=== PATIENT | female | born 1960 | race Caucasian/White ===

== ENCOUNTER 2021-05-06 19:43 | Emergency (ER) | payer MEDICARE ==
--- NOTE | 2021-05-06 20:00 | ERPHSYRPT ---
- History of Present Illness Time Seen by Provider: 05/06/21 19:46 Source: patient, EMS Exam Limitations: no limitations Physician History: The patient is a 60 y/o female with a pmh significant for HTN and breast cancer that is in remission and T2DM presents with a chief complaint of near syncope. Onset was just prior to arrival to the ED. 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 She felt lightheaded, flushed, and quickly sat down. Her symptoms resolved by the time she arrived to the ED via EMS. She denies CP, dyspnea, cough, N/V, blurred vision, focal weak ness/numbness/paresthesias. She endorsed having minor RUELAS. Her BP was noted to be in the 200's systolic. She states she takes HCTZ and verapamil for her HTN and has been compliant with these medications. She states she has not been compliant with her metformin because of GI side effects. She reports she checks her BP 3 times a week and her BP normally runs in the 140's 150's systolic. Timing/Duration: today Associated Symptoms: headaches, other (Near syncope), No nausea, No vomiting Allergies/Adverse Reactions: cephalexin monohydrate [From Keflex] Allergy (Mild, Verified 05/06/21 19:45) Hives iodine [Iodine] Allergy (Mild, Verified 05/06/21 19:45) Hives Sulfa (Sulfonamide Antibiotics) [Sulfa(Sulfonamide Antibiotics)] Adverse Reaction (Mild, Verified 05/06/21 19:45) Itching Home Medications: Hydrocodone Bit/Acetaminophen [[place] 5/325Mg] 1 each PO .PRN 02/15/15 [History] Metformin HCl 500 mg [Glucophage 500 MG] 500 mg PO TID 02/15/15 [History] Pravastatin Sodium 20 mg PO DAILY 02/15/15 [History] Verapamil HCl 40 mg PO DAILY 02/15/15 [History] Hx Tetanus, Diphtheria Vaccination/Date Given: Yes Hx Influenza Vaccination/Date Given: Yes (2013) Hx Pneumococcal Vaccination/Date Given: (unknown) - Review of Systems Constitutional: No Fever, No Chills Eyes: No Eye Pain, No Eye Redness, No Double Vision Ears, Nose, & Throat: No Symptoms Respiratory: No Symptoms Cardiac: No Symptoms Abdominal/Gastrointestinal: Abdominal Pain, No Nausea, No Vomiting Genitourinary Symptoms: No Symptoms Musculoskeletal: No Symptoms Skin: No Symptoms Neurological: Headache, Other (Near syncope), No Focal Weakness, No Parasthesia, No Seizure, No Speech Changes, No Vertigo Psychological: No Symptoms Endocrine: No Symptoms Hematologic/Lymphatic: No Symptoms All Other Systems: Reviewed and Negative - Past Medical History Pertinent Past Medical History: Yes Neurological History: No Pertinent History ENT History: No Pertinent History Cardiac History: High Cholesterol, Hypertension Respiratory History: No Pertinent History Endocrine Medical History: Diabetes Type II Musculoskeletal History: No Pertinent History GI Medical History: No Pertinent History History: No Pertinent History Psycho-Social History: Depression Female Reproductive Disorders: Breast Cancer Other Medical History: PMHX: MALIGNANT MELANOMA 1991 ANTERIOR CHEST TREATED WITH EXCISION AND RADIATION. BREAST CA 2010 TREATED WITH LUMPECTOMY, RADIATION AND CHEMO. STATES CARRIES "THE GENE" AND HAS BEEN RECOMMENDED TO HAVE BILATERAL MASTECTOMY BUT HAS DECLINED. RIGHT CARPAL TUNNEL (NO SURGERY). FX LEFT FOOT, CHOLECYSTECTOMY, HYSTERECTOMY - Past Surgical History Past Surgical History: Yes Neuro Surgical History: No Pertinent History Cardiac: No Pertinent History Respiratory: No Pertinent History Gastrointestinal: No Pertinent History Genitourinary: No Pertinent History Musculoskeletal: No Pertinent History Female Surgical History: Hysterectomy, Lumpectomy Other Surgical History: LUMPECTOMY LEFT BREAST - Social History Smoking Status: Never smoker Exposure to second hand smoke: No Drug Use: none Patient Lives Alone: Yes - Nursing Vital Signs Nursing Vital Signs: Initial Vital Signs Temperature 98.6 F 05/06/21 19:43 Pulse Rate 68 05/06/21 19:43 Respiratory Rate 16 05/06/21 19:43 Blood Pressure 203/104 05/06/21 19:43 O2 Sat by Pulse Oximetry 99 05/06/21 19:43 Pain Scale Pain Intensity 4 - Physical Exam General Appearance: no apparent distress, alert Eye Exam: PERRL/EOMI, eyes nml inspection, No scleral icterus Ears, Nose, Throat Exam: pharynx normal, No pharyngeal erythema, No tonsillar exudate Neck Exam: normal inspection, non-tender, supple Respiratory Exam: normal breath sounds, lungs clear, airway intact, No chest tenderness, No respiratory distress Cardiovascular Exam: regular rate/rhythm, normal heart sounds, normal peripheral pulses (Radial pulse 2+ bilaterally, DP 2+ bilaterally), No murmur, No friction rub, No capillary refill <2 sec, No edema Gastrointestinal/Abdomen Exam: soft, other (No pulsating mass and no abdominal bruit ascultated), No tenderness, No distention, No mass, No guarding Pelvic Exam: not done Rectal Exam: deferred Back Exam: normal inspection Extremity Exam: normal inspection, other (Digital Experience Manager strength 5/5, bicep flexion 5/5, hip flexion 5/5, dorsiflexion and plantar flexion 5/5 bilaterally) Neurologic Exam: alert, oriented x 3, cooperative, No normal mood/affect Skin Exam: normal color, warm, dry, No rash, No petechiae, No cyanosis SpO2 Interpretation: normal O2 Delivery: Room Air - Course Nursing assessment & vital signs reviewed: Yes EKG Interpreted by Me: RATE, Sinus Rhythm, NORMAL AXIS, NORMAL INTERVALS, NORMAL QRS, Other (No evidence of pre-excitation, no evidence of acute myocardial ischemia or injury pattern.) - Radiology Exams Chest X-ray Interpretation: Interpreted by me, Reviewed by me, Other (No acute cardiopulmonary process. Awaiting formal radiology review) - CT Exams Head CT Interpretation: Negative, Tele-radiologist Report Ordered Tests: Active Orders 24 hr Category Date Time Status EKG-ER Only STAT Care 05/06/21 19:55 Active IV Insertion STAT Care 05/06/21 19:55 Active CHEST 2 VIEWS (PA AND LAT) Stat Exams 05/06/21 19:56 Taken HEAD WITHOUT CONTRAST [CT] Stat Exams 05/06/21 19:57 Taken BMP Stat Lab 05/06/21 20:30 Completed CBC W DIFF Stat Lab 05/06/21 20:30 Completed TROPONIN Stat Lab 05/06/21 20:30 Completed UA W/RFX UR CULTURE Stat Lab 05/06/21 19:56 Completed Medication Summary Generic Name Dose Route Start Last Admin Trade Name Freq PRN Reason Stop Dose Admin Magnesium Sulfate/Dextrose 100 mls @ 100 mls/hr 05/06/21 21:15 05/06/21 21:19 Magnesium 1 Gm / 100 Ml D5w IV 05/06/21 23:14 100 mls/hr Q1H [place] Administration Discontinued Medications Generic Name Dose Route Start Last Admin Trade Name Freq PRN Reason Stop Dose Admin Acetaminophen 975 mg 05/06/21 20:50 05/06/21 20:56 Acetaminophen 325 Mg Tablet PO 05/06/21 20:51 975 mg STAT ONE Administration Acetaminophen Confirm 05/06/21 20:55 Acetaminophen 325 Mg Tablet Administered 05/06/21 20:56 Dose 975 mg .ROUTE .STK-MED ONE Famotidine 20 mg 05/06/21 20:50 05/06/21 20:56 Famotidine 20 Mg/1 Vial IV 05/06/21 20:51 20 mg STAT ONE Administration Famotidine Confirm 05/06/21 20:53 Famotidine 20 Mg/1 Vial Administered 05/06/21 20:54 Dose 20 mg IV .STK-MED ONE Sodium Chloride 1,000 mls @ 999 mls/hr 05/06/21 21:05 05/06/21 21:18 Sodium Chloride 0.9% 1000 Ml IV 05/06/21 22:05 999 mls/hr .Q1H1M STA Administration Sodium Chloride Confirm 05/06/21 21:11 Sodium Chloride 0.9% 1000 Ml Administered 05/06/21 21:12 Dose 1,000 mls @ ud .ROUTE .STK-MED ONE Potassium Chloride 40 meq 05/06/21 21:06 05/06/21 21:18 Potassium Chloride 10 Meq Tablet PO 05/06/21 21:07 40 meq STAT ONE Administration Potassium Chloride Confirm 05/06/21 21:11 Potassium Chloride 10 Meq Tablet Administered 05/06/21 21:12 Dose 40 meq PO .STK-MED ONE Lab/Rad Data: Laboratory Result Diagrams 05/06/21 20:30 05/06/21 20:30 Laboratory Results 05/06/21 05/06/21 05/06/21 Range/Units 20:30 20:30 19:56 WBC 8.0 (4.0-10.5) K/mm3 RBC 4.60 (4.1-5.4) M/mm3 Hgb 12.7 (12.0-16.0) gm/dl Hct 38.1 (35-47) % MCV 82.8 (78-100) fl MCH 27.6 (26-32) pg MCHC 33.3 (32-36) g/dl RDW 13.2 (11.5-14.0) % Plt Count 258 (150-450) K/mm3 MPV 10.5 (7.5-11.0) fl Gran % 64.0 (36.0-66.0) % Eos # (Auto) 0.13 (0-0.5) Absolute Lymphs (auto) 2.18 (1.0-4.6) Absolute Monos (auto) 0.52 (0.0-1.3) Lymphocytes % 27.3 (24.0-44.0) % Monocytes % 6.5 (0.0-12.0) % Eosinophils % 1.6 (0.00-5.0) % Basophils % 0.6 (0.0-0.4) % Absolute Granulocytes 5.10 (1.4-6.9) Basophils # 0.05 (0-0.4) Sodium 133 L (137-145) mmol/L Potassium 2.9 L* (3.5-5.1) mmol/L Chloride 96 L (98-107) mmol/L Carbon Dioxide 25 (22-30) mmol/L Anion Gap 14.9 (5-15) MEQ/L BUN 5 L (7-17) mg/dL Creatinine 0.59 (0.52-1.04) mg/dL Estimated GFR > 60.0 ML/MIN Glucose 153 H (74-106) mg/dL Calcium 9.6 (8.4-10.2) mg/dL Troponin I < 0.012 (0.000-0.034) ng/mL Urine Color COLORLESS (YELLOW) Urine Appearance CLEAR (CLEAR) Urine pH 7.0 (5-6) Ur Specific [place] 1.003 (1.005-1.025) Urine Protein NEGATIVE (Negative) Urine Ketones TRACE (NEGATIVE) Urine Blood NEGATIVE (0-5) Abe/ul Urine Nitrite NEGATIVE (NEGATIVE) Urine Bilirubin NEGATIVE (NEGATIVE) Urine Urobilinogen NEGATIVE (0-1) mg/dL Ur Leukocyte Esterase SMALL (NEGATIVE) Urine WBC (Auto) 3-5 (0-5) /HPF Urine RBC (Auto) 0-2 (0-2) /HPF U Epithel Cells (Auto) RARE (FEW) /HPF Urine Bacteria (Auto) NONE (NEGATIVE) /HPF Urine Mucus (Auto) SLIGHT (NEGATIVE) /HPF Urine Culture Reflexed NO (NO) Urine Glucose NEGATIVE (NEGATIVE) mg/dL - Progress Progress Note: 05/06/21 20:50 I performed a bedside US of the patient abdominal aorta and there was no evidence of AAA or dissection. 05/06/21 20:54 Blood pressure lowering without intervention. BP 176/74 mmHg. 05/06/21 21:07 The patient serum sodium is mildly low, with hypokalemia, and hypochloremia. May be from dehydration, or from diarrhea from her metformin. She likely is low on magnesium given she is hypokalemic. Plan to administer IV magnesium which should help lower her BP, IVF, and PO KCl. 05/06/21 22:25 Nontoxic appearance. No evidence of endorgan failure. Patient likely had vasovagal near syncope given her history. My suspicion for arrhythmia is low. Head CT showed no evidence of intracranial hemorrhage or stroke and bedside ultrasound of her aorta showed no evidence of AAA. Her potassium and magnesium was repleted. Her blood pressure started trending down on its own without any intervention, specifically antihypertensives and the magnesium may help with this as well. I will have the patient's medications switched from HCTZ to a HCTZ lisinopril combination and have increased her oral potassium. I instructed her to follow-up with her PCP to have her blood pressure rechecked and further managed as an outpatient. She agreed with and verbally understood the discharge plan and was comfortable with being discharged home. - Departure Departure Disposition: Home Clinical Impression: Vasovagal near syncope, Hypokalemia, Hyponatremia, Accelerated hypertension Condition: Stable Critical Care Time: No Referrals: JAY OBRIEN MD [Primary Care Provider] - Follow up/PCP as directed Instructions: High Blood Pressure in Adults, Hypokalemia (DC), Near Fainting (DC) Prescriptions: Potassium Chloride 10 Meq Tab* [Klor [place] 10 MEQ] 20 meq PO DAILY #30 tab Lisinopril/Hydrochlorothiazide [Lisinopril-Hctz 10-12.5 mg Tab] 1 each PO DAILY #30 tablet
[2021-05-06 20:33] LABS: BASOPHIL % 0.6 % (0.0-0.4); Basophil (Absolute #) 0.05 (0-0.4); Eosinophil % 1.6 % (0.00-5.0); Eosinophil (Absolute #) 0.13 (0-0.5); Hematocrit 38.1 % (35-47); Hemoglobin 12.7 gm/dl (12.0-16.0); Lymphocyte (Absolute #) 2.18 (1.0-4.6); Lymphocytes % 27.3 % (24.0-44.0); Mean Cell Volume 82.8 fl (78-100); Mean Corpuscular Hemoglobin 27.6 pg (26-32); Mean Corpuscular Hgb Concent. 33.3 g/dl (32-36); Mean Platelet Volume 10.5 fl (7.5-11.0); Monocyte (Absolute #) 0.52 (0.0-1.3); Monocytes % 6.5 % (0.0-12.0); Platelet Count 258 K/mm3 (150-450); Red Cell Distribution Width 13.2 % (11.5-14.0)
[2021-05-06] MEDS ORDERED: TYLENOL 325 MG PO ONE (20:50)
[2021-05-06] MEDS ORDERED: Pepcid 20 MG VIAL IV ONE ×2 (20:50→20:53)
[2021-05-06 20:55] LABS: ANION GAP 14.9 MEQ/L (5-15); BLOOD UREA NITROGEN 5 mg/dL (7-17); CHLORIDE 96 mmol/L (98-107); Calcium 9.6 mg/dL (8.4-10.2); Carbon Dioxide 25 mmol/L (22-30); Creatinine 1 0.59 mg/dL (0.52-1.04); EST GLOMERULAR FILTRATION RATE > 60.0 ML/MIN; Glucose 153 mg/dL (74-106); SODIUM 133 mmol/L (137-145); TROPONIN < 0.012 ng/mL (0.000-0.034)
[2021-05-06] MEDS ORDERED: TYLENOL 325 MG ONE (20:55)
[2021-05-06 20:57] LABS: Appearance CLEAR (CLEAR); Bilirubin NEGATIVE (NEGATIVE); Blood NEGATIVE Ery/ul (0-5); Epithelial Cells RARE /HPF (FEW); Glucose NEGATIVE (NEGATIVE); Ketones TRACE (NEGATIVE); Leukocyte Esterase SMALL (NEGATIVE); Mucus SLIGHT /HPF (NEGATIVE); Nitrite NEGATIVE (NEGATIVE); Protein,Urine Dip NEGATIVE (Negative); RBC 0-2 /HPF (0-2); Specific Gravity 1.003 (1.005-1.025); Urobilinogen NEGATIVE mg/dL (0-1)
[2021-05-06 21:01] LABS: Potassium 2.9 mmol/L (3.5-5.1)
[2021-05-06] MEDS ORDERED: Sodium Chloride 0.9% 1000 ML 1,000 ML IV STA (21:05)
[2021-05-06] MEDS ORDERED: Klor Con 10 MEQ PO ONE ×2 (21:06→21:11)
[2021-05-06] MEDS ORDERED: Sodium Chloride 0.9% 1000 ML 1,000 ML ONE (21:11)
[2021-05-06] MEDS ORDERED: Magnesium 1 Gm / 100 Ml D5W*** 200 ML IV ONE (21:11)
[2021-05-06] MEDS: Magnesium 1 Gm / 100 Ml D5W*** 100 ML IV SCH (21:19)
--- NOTE | 2021-05-07 07:45 | XRAY ---
Indication: Headache. Hypertension. Multiple contiguous axial images obtained through the head without contrast. Comparison: None Normal appearing brain parenchyma, ventricles, and bony calvarium for patient's age. Visualized paranasal sinuses and mastoid air cells are clear. Impression: Normal CT head without contrast exam. Comment: Preliminary interpretation made by [facility]. No critical discrepancy.
--- NOTE | 2021-05-07 07:49 | XRAY ---
Indication: Near syncope. Hypertension. Comparison: December 29, 2015. PA/lateral chest again demonstrates normal heart and lungs with stable metallic clip overlying right lung. Bony thorax intact again with minimal degenerative changes. No new/acute findings.
[2021-05-08 17:06] VITALS: BP 175/79; PULSE 65; O2SAT 95
== END 2021-05-06 22:40 | disposition home or self-care (01) ==
LOC: ED 19:43
DX: R55 Syncope and collapse (principal); E87.6 Hypokalemia; E87.1 Hypo-osmolality and hyponatremia; I10 Essential (primary) hypertension; E11.8 Type 2 diabetes mellitus with unspecified complications; Z79.84 Long term (current) use of oral hypoglycemic drugs; R51.9 Headache, unspecified; Z79.891 Long term (current) use of opiate analgesic; E78.5 Hyperlipidemia, unspecified
CPT/HCPCS: 36000; 36415; 70450; 71046; 80048; 81001; 84484; 85025; 93005; 96374; 99284; J3475; A9270-GY

== ENCOUNTER 2021-05-20 17:02 | Emergency (ER) | payer MEDICARE ==
[2021-05-20] MEDS ORDERED: TYLENOL 325 MG PO STA (17:14)
--- NOTE | 2021-05-20 17:22 | ERPHSYRPT ---
- History of Present Illness Time Seen by Provider: 05/20/21 17:03 Source: patient Exam Limitations: no limitations Patient Subjective Stated Complaint: PT states "I have these odd sores in my mouth and my tongue hurts." Triage Nursing Assessment: Pt presented alert and oriented x 3, skin wpd Pt ambulates with an upright steady gait, able to speak in clear full sentences pt in no apparent respiratory distress. Physician History: 60-year-old female presented in the ER with chief complaint of sore throat/bumps on the back of throat and some soreness in the tongue with altered taste with decreased appetite. Mild painful swallowing but denies any difficulty breathing. No fever or chills reported. Timing/Duration: gradual onset, days (2) Severity: moderate ENT Location: throat Prearrival Treatment: over the counter meds Associated Symptoms: nasal congestion/drainage, sore throat Allergies/Adverse Reactions: cephalexin monohydrate [From Keflex] Allergy (Mild, Verified 05/06/21 19:45) Hives iodine [Iodine] Allergy (Mild, Verified 05/06/21 19:45) Hives Sulfa (Sulfonamide Antibiotics) [Sulfa(Sulfonamide Antibiotics)] Adverse Reaction (Mild, Verified 05/06/21 19:45) Itching Home Medications: Hydrocodone Bit/Acetaminophen [[place] 5/325Mg] 1 each PO .PRN 02/15/15 [History] Metformin HCl 500 mg [Glucophage 500 MG] 500 mg PO TID 02/15/15 [History] Pravastatin Sodium 20 mg PO DAILY 02/15/15 [History] Verapamil HCl 40 mg PO DAILY 02/15/15 [History] Hx Tetanus, Diphtheria Vaccination/Date Given: Yes Hx Influenza Vaccination/Date Given: Yes (2013) Hx Pneumococcal Vaccination/Date Given: (unknown) Immunizations Up to Date: Yes Travel Risk - International Travel Have you traveled outside of the country in past 3 weeks: No - Coronavirus Screening Are you exhibiting any of the following symptoms?: No Close contact with a COVID-19 positive Pt in past 14-21 Days: No - Vaccine Status Have you recieved a Covid-19 vaccination: Yes Estimator Printing: Moderna - Vaccination Dates Date of 2cond Vaccination (if applicable): 10/08/2020 - Review of Systems Constitutional: No Symptoms Eyes: No Symptoms Ears, Nose, & Throat: Mouth Swelling, Throat Pain, Throat Swelling, Painful Swallowing Respiratory: No Symptoms Cardiac: No Symptoms Abdominal/Gastrointestinal: No Symptoms Genitourinary Symptoms: No Symptoms Musculoskeletal: No Symptoms Neurological: No Symptoms Psychological: No Symptoms Endocrine: No Symptoms Hematologic/Lymphatic: No Symptoms Immunological/Allergic: No Symptoms - Past Medical History Pertinent Past Medical History: Yes Neurological History: No Pertinent History ENT History: No Pertinent History Cardiac History: High Cholesterol, Hypertension Respiratory History: No Pertinent History Endocrine Medical History: Diabetes Type II Musculoskeletal History: No Pertinent History GI Medical History: No Pertinent History History: No Pertinent History Psycho-Social History: Depression Female Reproductive Disorders: Breast Cancer Other Medical History: PMHX: MALIGNANT MELANOMA 1991 ANTERIOR CHEST TREATED WITH EXCISION AND RADIATION. BREAST CA 2010 TREATED WITH LUMPECTOMY, RADIATION AND CHEMO. STATES CARRIES "THE GENE" AND HAS BEEN RECOMMENDED TO HAVE BILATERAL MASTECTOMY BUT HAS DECLINED. RIGHT CARPAL TUNNEL (NO SURGERY). FX LEFT FOOT, CHOLECYSTECTOMY, HYSTERECTOMY - Past Surgical History Past Surgical History: Yes Neuro Surgical History: No Pertinent History Cardiac: No Pertinent History Respiratory: No Pertinent History Gastrointestinal: No Pertinent History Genitourinary: No Pertinent History Musculoskeletal: No Pertinent History Female Surgical History: Hysterectomy, Lumpectomy Other Surgical History: LUMPECTOMY LEFT BREAST - Social History Smoking Status: Never smoker Exposure to second hand smoke: No Drug Use: none Patient Lives Alone: No - Nursing Vital Signs Nursing Vital Signs: Initial Vital Signs Temperature 98.3 F 05/20/21 17:06 Pulse Rate 81 05/20/21 17:06 Respiratory Rate 20 05/20/21 17:06 Blood Pressure 190/87 05/20/21 17:06 O2 Sat by Pulse Oximetry 99 05/20/21 17:06 Pain Scale Pain Intensity 7 - Physical Exam General Appearance: no apparent distress, alert Eye Exam: bilateral eye: normal inspection, PERRL, EOMI Ear Exam: bilateral ear: auricle normal, canal normal, TM normal Throat Exam: normal, moist mucus membranes, pharynx swelling, pharynx tenderness, No tonsillar exudate Neck Exam: normal inspection, non-tender, supple, full range of motion, trachea midline Cardiovascular/Respiratory Exam: normal breath sounds, regular rate/rhythm, heart sounds normal Abdominal Exam: non-tender, soft Neurologic Exam: alert, oriented x 3, cooperative, insulation technician II-XII nml as tested Skin Exam: normal color SpO2 Interpretation: normal SpO2: 99 O2 Delivery: Room Air Ordered Tests: Active Orders 24 hr Category Date Time Status INFLUENZA A+B DA Stat Lab 05/20/21 17:35 Completed Medication Summary Discontinued Medications Generic Name Dose Route Start Last Admin Trade Name Wendy PRN Reason Stop Dose Admin Acetaminophen 975 mg 05/20/21 17:14 05/20/21 17:52 Acetaminophen 325 Mg Tablet PO 05/20/21 17:15 975 mg STAT STA Administration Acetaminophen Confirm 05/20/21 17:51 Acetaminophen 325 Mg Tablet Administered 05/20/21 17:52 Dose 975 mg .ROUTE .[employer] ONE Lab/Rad Data: Laboratory Results 05/20/21 05/20/21 Range/Units 17:35 17:35 Influenza Type A Ag NEGATIVE (NEGATIVE) Influenza Type B Ag NEGATIVE (NEGATIVE) Group A Strep Antibody NOT DETECTED (NEGATIVE) - Progress Progress: improved, re-examined Progress Note: 05/20/21 18:28 She is given some Tylenol for symptomatic relief. Negative strep and flu. Patient is vaccinated against COVID-19. Will obtain outpatient Covid test. Probably viral pharyngitis, recommended supportive care. Discussed signs symptoms of worsening needing return to ER which she seems understanding. Counseled pt/family regarding: lab results, diagnosis, need for follow-up - Departure Departure Disposition: Home Clinical Impression: Acute viral pharyngitis Condition: Stable Critical Care Time: No Referrals: JAY OBRIEN MD [Primary Care Provider] - Follow up/PCP as directed (In 2 days for reevaluation) Instructions: Sore Throat, Adult (DC) Additional Instructions: Take Tylenol as needed for pain. Drink plenty of fluids. Use warm salt water gargles. Follow contact/droplet precautions until your Covid test is back. Return to ER for worsening sore throat, difficulty swallowing or if develop any difficulty breathing etc.
[2021-05-20] MEDS ORDERED: TYLENOL 325 MG ONE (17:51)
[2021-05-20 18:03] LABS: INFLUENZA A NEGATIVE (NEGATIVE); INFLUENZA B NEGATIVE (NEGATIVE)
[2021-05-20 18:30] VITALS: BP 188/91; PULSE 70; O2SAT 99
== END 2021-05-20 18:51 | disposition home or self-care (01) ==
LOC: ED 17:02
DX: J02.9 Acute pharyngitis, unspecified (principal); I10 Essential (primary) hypertension; E78.5 Hyperlipidemia, unspecified; E11.8 Type 2 diabetes mellitus with unspecified complications; Z79.84 Long term (current) use of oral hypoglycemic drugs; Z79.891 Long term (current) use of opiate analgesic
CPT/HCPCS: 87400; 87651; 99283; U0003; A9270-GY

== ENCOUNTER 2021-11-14 19:53 | Emergency (ER) | payer MEDICARE ==
--- NOTE | 2021-11-14 20:05 | ERPHSYRPT ---
- History of Present Illness Time Seen by Provider: 11/14/21 20:05 Source: patient Exam Limitations: no limitations Physician History: This is a 61-year-old white female who has a history of hypertension, elevated cholesterol and type 2 diabetes who presents with rash that began on her back today. However, yesterday she felt a burning painful sensation in the same area before the rash erupted. Today there is the rash and more acute, significant burning pain present. Patient has had history of shingles in the past and this is how it began for her at that time. Patient has [place] at home and will use that for pain control. However, she wanted to start on an antiviral as quickly as possible. Quality: burning, painful Severity: mild (To moderate) Location: other (Back) Possible Causes: other (Likely shingles) Associated Symptoms: rash Allergies/Adverse Reactions: amoxicillin Allergy (Mild, Verified 11/14/21 21:12) Hives iodine [Iodine] Allergy (Mild, Verified 11/14/21 21:12) Hives Sulfa (Sulfonamide Antibiotics) [Sulfa(Sulfonamide Antibiotics)] Adverse Reaction (Mild, Verified 11/14/21 21:12) Itching Home Medications: Hydrocodone Bit/Acetaminophen [[place] 5/325Mg] 1 each PO .PRN 02/15/15 [History] Metformin HCl 500 mg [Glucophage 500 MG] 500 mg PO TID 02/15/15 [History] Pravastatin Sodium 20 mg PO DAILY 02/15/15 [History] Verapamil HCl 40 mg PO DAILY 02/15/15 [History] Hx Tetanus, Diphtheria Vaccination/Date Given: Yes Hx Influenza Vaccination/Date Given: Yes (2013) Hx Pneumococcal Vaccination/Date Given: (unknown) Travel Risk - International Travel Have you traveled outside of the country in past 3 weeks: No - Coronavirus Screening Are you exhibiting any of the following symptoms?: No Close contact with a COVID-19 positive Pt in past 14-21 Days: No - Vaccine Status Have you recieved a Covid-19 vaccination: Yes Claim Analyst: Moderna - Vaccination Dates Date of 2cond Vaccination (if applicable): 10/08/2020 - Review of Systems Constitutional: No Symptoms Eyes: No Symptoms Ears, Nose, & Throat: No Symptoms Respiratory: No Symptoms Cardiac: No Symptoms Abdominal/Gastrointestinal: No Symptoms Genitourinary Symptoms: No Symptoms Musculoskeletal: No Symptoms Skin: Rash Neurological: No Symptoms Psychological: No Symptoms Endocrine: No Symptoms Hematologic/Lymphatic: No Symptoms Immunological/Allergic: No Symptoms All Other Systems: Reviewed and Negative - Past Medical History Pertinent Past Medical History: Yes Neurological History: No Pertinent History ENT History: No Pertinent History Cardiac History: High Cholesterol, Hypertension Respiratory History: No Pertinent History Endocrine Medical History: Diabetes Type II Musculoskeletal History: No Pertinent History GI Medical History: No Pertinent History History: No Pertinent History Psycho-Social History: Depression Female Reproductive Disorders: Breast Cancer Other Medical History: PMHX: MALIGNANT MELANOMA 1991 ANTERIOR CHEST TREATED WITH EXCISION AND RADIATION. BREAST CA 2010 TREATED WITH LUMPECTOMY, RADIATION AND CHEMO. STATES CARRIES "THE GENE" AND HAS BEEN RECOMMENDED TO HAVE BILATERAL MASTECTOMY BUT HAS DECLINED. RIGHT CARPAL TUNNEL (NO SURGERY). FX LEFT FOOT, CHOLECYSTECTOMY, HYSTERECTOMY - Past Surgical History Past Surgical History: Yes Neuro Surgical History: No Pertinent History Cardiac: No Pertinent History Respiratory: No Pertinent History Gastrointestinal: No Pertinent History Genitourinary: No Pertinent History Musculoskeletal: No Pertinent History Female Surgical History: Hysterectomy, Lumpectomy Other Surgical History: LUMPECTOMY LEFT BREAST - Social History Smoking Status: Never smoker Exposure to second hand smoke: No Drug Use: none Patient Lives Alone: No - Nursing Vital Signs Nursing Vital Signs: Initial Vital Signs Temperature 97.1 F 11/14/21 20:58 Pulse Rate 77 11/14/21 20:58 Respiratory Rate 16 11/14/21 20:58 Blood Pressure 157/87 11/14/21 20:58 O2 Sat by Pulse Oximetry 97 11/14/21 20:58 Pain Scale Pain Intensity 7 - Physical Exam General Appearance: no apparent distress, alert, anxiety Eye Exam: PERRL/EOMI, eyes nml inspection Ears, Nose, Throat Exam: normal ENT inspection, moist mucous membranes Neck Exam: normal inspection, non-tender, supple, full range of motion Respiratory Exam: normal breath sounds, lungs clear, airway intact, No chest tenderness, No respiratory distress Cardiovascular Exam: regular rate/rhythm, normal heart sounds, normal peripheral pulses Gastrointestinal/Abdomen Exam: soft, normal bowel sounds, No tenderness Pelvic Exam: not done Rectal Exam: not done Extremity Exam: normal inspection, normal range of motion, pelvis stable Neurologic Exam: alert, oriented x 3, cooperative, restaurant management internship II-XII nml as tested, normal mood/affect, nml cerebellar function, nml station & gait, sensation nml Skin Exam: rash (Dermatome starting the back migrating to the left. No blisters at this time) Lymphatic Exam: No adenopathy SpO2 Interpretation: normal O2 Delivery: Room Air - Progress Progress: unchanged Counseled pt/family regarding: diagnosis, need for follow-up - Departure Departure Disposition: Home Clinical Impression: Shingles rash Condition: Stable Critical Care Time: No Referrals: JAY OBRIEN MD [Primary Care Provider] - Follow up/PCP as directed Additional Instructions: Keep area clean. Use your hydrocodone pain medicine for pain relief. Follow-up with your primary care physician for further evaluation and management. Take your antiviral medication as prescribed. Prescriptions: Valacyclovir HCl [Valacyclovir] 1,000 mg PO Q8H #21 tablet
[2021-11-14 21:10] VITALS: BP 157/87
[2021-11-14] MEDS ORDERED: ACYCLOVIR PO ONE (21:25)
[2021-11-14] MEDS ORDERED: ACYCLOVIR ONE (21:36)
[2021-11-14 21:45] VITALS: PULSE 90; O2SAT 99
== END 2021-11-14 21:46 | disposition home or self-care (01) ==
LOC: ED 19:53
DX: B02.8 Zoster with other complications (principal); R21 Rash and other nonspecific skin eruption; I10 Essential (primary) hypertension; E78.5 Hyperlipidemia, unspecified; E11.9 Type 2 diabetes mellitus without complications; Z79.891 Long term (current) use of opiate analgesic; Z79.84 Long term (current) use of oral hypoglycemic drugs; Z79.899 Other long term (current) drug therapy
CPT/HCPCS: 99283; A9270-GY

== ENCOUNTER 2021-11-30 16:45 | Emergency (ER) | payer MEDICARE ==
--- NOTE | 2021-11-30 17:32 | ERPHSYRPT ---
- History of Present Illness Source: patient Exam Limitations: no limitations Patient Subjective Stated Complaint: pain in the pelvic area and some pain when she urinates, pt did have some kind of urinary or kidney infection a few weeks ago and she went to [facility] and thinks that she didn't get all the way over it Triage Nursing Assessment: Pt brought self to the ER, hypertensive, rates pain as 7/10, took an AZO Standard today trying to aleviate the pain, pain to lower pelvic region, skin n/w/d, pulses normal, denies N&V, doesn't appear to be in any distress Physician History: 61 yo wf w dysuria and mild supra-pubic pain today. Pt was treated for a UTI 2 wks ago. She denies increased frequency/hematuria/CVA pain//fever/N/V/D. Timing/Duration: today Activites at Onset: rest Quality: burning Onset Location: suprapubic Pain Radiation: none Severity of Pain-Max: mild Severity of Pain-Current: mild Prior abdominal problems: none Sexual intercourse history: non-contributory Modifying Factors: Improves With: nothing, urinating Associated Symptoms: No abdominal pain, No fever, No chills, No diaphoresis, No nausea, No vomiting, No dysuria, No nocturia, No polyuria, No urinary frequency, No , No loss of bladder control, No lower back pain, No lumps, No mass, No swelling, No syncope, No vaginal discharge, No vaginal fluid leakage Allergies/Adverse Reactions: amoxicillin Allergy (Mild, Verified 11/30/21 17:12) Hives iodine [Iodine] Allergy (Mild, Verified 11/30/21 17:12) Hives Sulfa (Sulfonamide Antibiotics) [Sulfa(Sulfonamide Antibiotics)] Adverse Reaction (Mild, Verified 11/30/21 17:12) Itching Home Medications: Hydrocodone Bit/Acetaminophen [[place] 5/325Mg] 1 each PO .PRN 02/15/15 [History] Metformin HCl 500 mg [Glucophage 500 MG] 500 mg PO TID 02/15/15 [History] Pravastatin Sodium 20 mg PO DAILY 02/15/15 [History] Verapamil HCl 40 mg PO DAILY 02/15/15 [History] Hx Tetanus, Diphtheria Vaccination/Date Given: Yes Hx Influenza Vaccination/Date Given: Yes (2013) Hx Pneumococcal Vaccination/Date Given: (unknown) Travel Risk - International Travel Have you traveled outside of the country in past 3 weeks: No - Coronavirus Screening Are you exhibiting any of the following symptoms?: No - Vaccine Status Have you recieved a Covid-19 vaccination: Yes Edging Machine Catcher: Moderna - Vaccination Dates Date of 2cond Vaccination (if applicable): 10/08/2020 - Review of Systems Constitutional: No Symptoms Eyes: No Symptoms Ears, Nose, & Throat: No Symptoms Respiratory: No Symptoms Cardiac: No Symptoms Abdominal/Gastrointestinal: Other (Supra-pubic pain) Genitourinary Symptoms: No Symptoms, Dysuria Musculoskeletal: No Symptoms Skin: No Symptoms Neurological: No Symptoms Psychological: No Symptoms Endocrine: No Symptoms Hematologic/Lymphatic: No Symptoms Immunological/Allergic: No Symptoms - Past Medical History Pertinent Past Medical History: Yes Neurological History: No Pertinent History ENT History: No Pertinent History Cardiac History: High Cholesterol, Hypertension Respiratory History: No Pertinent History Endocrine Medical History: Diabetes Type II Musculoskeletal History: No Pertinent History GI Medical History: No Pertinent History History: No Pertinent History Psycho-Social History: Depression Female Reproductive Disorders: Breast Cancer Other Medical History: PMHX: MALIGNANT MELANOMA 1991 ANTERIOR CHEST TREATED WITH EXCISION AND RADIATION. BREAST CA 2010 TREATED WITH LUMPECTOMY, RADIATION AND CHEMO. STATES CARRIES "THE GENE" AND HAS BEEN RECOMMENDED TO HAVE BILATERAL MASTECTOMY BUT HAS DECLINED. RIGHT CARPAL TUNNEL (NO SURGERY). FX LEFT FOOT, CHOLECYSTECTOMY, HYSTERECTOMY - Past Surgical History Past Surgical History: Yes Neuro Surgical History: No Pertinent History Cardiac: No Pertinent History Respiratory: No Pertinent History Gastrointestinal: No Pertinent History Genitourinary: No Pertinent History Musculoskeletal: No Pertinent History Female Surgical History: Hysterectomy, Lumpectomy Other Surgical History: LUMPECTOMY LEFT BREAST - Social History Smoking Status: Never smoker Exposure to second hand smoke: No Drug Use: none Patient Lives Alone: No - Nursing Vital Signs Nursing Vital Signs: Initial Vital Signs Temperature 98.5 F 11/30/21 16:56 Pulse Rate 79 11/30/21 16:56 Blood Pressure 145/82 11/30/21 16:56 O2 Sat by Pulse Oximetry 96 11/30/21 16:56 Pain Scale Pain Intensity 7 Hypertensive - Physical Exam General Appearance: no apparent distress Eye Exam: PERRL/EOMI, eyes nml inspection Ears, Nose, Throat Exam: normal ENT inspection, TMs normal, pharynx normal, moist mucous membranes Neck Exam: normal inspection, non-tender, supple, full range of motion, No meningismus, No mass, No Brudzinski, No Kernig's, No carotid bruit Respiratory Exam: normal breath sounds, lungs clear, airway intact Cardiovascular Exam: regular rate/rhythm, normal heart sounds, normal peripheral pulses, capillary refill <2 sec, No murmur Gastrointestinal/Abdomen Exam: soft, normal bowel sounds, No tenderness, No distention Pelvic Exam: not done Back Exam: normal inspection, normal range of motion, No CVA tenderness Extremity Exam: normal inspection, normal range of motion Neurologic Exam: alert, oriented x 3, cooperative, microsoft systems engineer II-XII nml as tested, normal mood/affect, nml cerebellar function, nml station & gait, sensation nml Skin Exam: normal color, warm, dry Lymphatic Exam: No adenopathy SpO2 Interpretation: normal SpO2: 96 O2 Delivery: Room Air - Course Nursing assessment & vital signs reviewed: Yes Ordered Tests: Active Orders 24 hr Category Date Time Status CULTURE,URINE Stat Lab 11/30/21 17:45 Received UA W/RFX CULTURE Stat Lab 11/30/21 17:45 Completed Lab/Rad Data: Laboratory Results 11/30/21 Range/Units 17:45 Urinalys Dipstick Clnc MAIN LAB Urine Color ORANGE (YELLOW) Urine Appearance CLEAR (CLEAR) Urine pH 5.0 (5-6) Ur Specific [place] <=1.005 (1.005-1.025) POC Urine Protein Conf NEGATIVE (Negative) Urine Ketones NEGATIVE (NEGATIVE) Urine Nitrite POSITIVE (NEGATIVE) Urine Bilirubin NEGATIVE (NEGATIVE) Urine Urobilinogen 1 (0-1) mg/dL Urine Leukocytes SMALL (NEGATIVE) Urine WBC (Auto) 0-2 (0-5) /HPF Urine RBC (Auto) 0-2 (0-2) /HPF U Epithel Cells (Auto) NONE (FEW) /HPF Urine Bacteria (Auto) NONE (NEGATIVE) /HPF Urine RBC NEGATIVE (0-5) Abe/ul Urine Mucus (Auto) SLIGHT (NEGATIVE) /HPF Ur Culture Indicated? YES Urine Glucose 100 (NEGATIVE) mg/dL - Progress Progress Note: 11/30/21 21:51 Urine fairly unremarkable, but pt on pyridium and symptomatic, so will treat. Last UA grew out E coli susceptible to Levaquin, so short course of Levaquin started. Counseled pt/family regarding: lab results, diagnosis, need for follow-up - Departure Departure Disposition: Home Clinical Impression: Dysuria Condition: Stable Critical Care Time: No Referrals: JAY OBRIEN MD [Primary Care Provider] - Follow up/PCP as directed Instructions: Urinary Tract Infection, Adult (DC), Dysuria, Adult (DC) Additional Instructions: Levaquin once a day for 3 days Follow up with your family MD Return to ER for worsening symptoms Prescriptions: levoFLOXacin [Levofloxacin] 500 mg PO DAILY #3 tablet
[2021-11-30 18:15] LABS: Appearance CLEAR (CLEAR)
[2021-11-30 18:16] LABS: Bilirubin NEGATIVE (NEGATIVE); Glucose 100 mg/dL (NEGATIVE); Ketones NEGATIVE (NEGATIVE); Nitrite POSITIVE (NEGATIVE); Protein,Urine Dip NEGATIVE (Negative); RBC NEGATIVE Ery/ul (0-5); Specific Gravity <=1.005 (1.005-1.025); Urobilinogen 1 mg/dL (0-1)
[2021-11-30 18:17] LABS: Dipstick done @ ? MAIN LAB
[2021-11-30 18:22] LABS: Mucus SLIGHT /HPF (NEGATIVE); RBC 0-2 /HPF (0-2); WBC 0-2 /HPF (0-5)
[2021-11-30 18:31] LABS: Urine Cultured Indicated? YES
[2021-11-30 18:43] VITALS: BP 123/66; PULSE 72
[2021-11-30 18:52] VITALS: O2SAT 96
== END 2021-11-30 18:57 | disposition home or self-care (01) ==
LOC: ED 16:45
DX: R30.0 Dysuria (principal); R10.2 Pelvic and perineal pain; E78.5 Hyperlipidemia, unspecified; I10 Essential (primary) hypertension; E11.9 Type 2 diabetes mellitus without complications; Z79.891 Long term (current) use of opiate analgesic; Z79.84 Long term (current) use of oral hypoglycemic drugs; Z79.899 Other long term (current) drug therapy
CPT/HCPCS: 81015; 87086; 99283

== ENCOUNTER 2023-02-02 16:16 | Emergency (ER) | payer MEDICARE ==
[2023-02-02 16:46] VITALS: BP 165/105; TEMP 98.7
--- NOTE | 2023-02-02 16:58 | ERPHSYRPT ---
- History of Present Illness Source: patient Exam Limitations: no limitations Patient Subjective Stated Complaint: to er co possible insect bite to left upper inner thigh. pt states she notice redness and itching approx the size of a quarter. pt reports area has tripled in size since yesterday. PT states she did not notice anything biting her at the time. no pain to area just itching Triage Nursing Assessment: PT arrives with approx a 4 x 4 inch raised red area noted to left upper thigh. Area is light red with a dard red center and dark red to right and left outer border. area has white margin around outside. pT arrives p/w/d resp easy [id number] Physician History: 62 yo WF w erythematous area L medial thigh x 1 day. Area is pruritic but denies pain. She noticed the area yesterday while wearing jeans in her house. Pt states that the area is increasing in size. She denies fever/nausea/vomiting/diarrhea/dyspnea/new meds/new exposures. Timing/Duration: yesterday Quality: itchy Severity: mild Location: extremities (L medial thigh) Possible Causes: no cause identified Associated Symptoms: denies symptoms Allergies/Adverse Reactions: amoxicillin Allergy (Mild, Verified 02/02/23 16:32) Hives iodine [Iodine] Allergy (Mild, Verified 02/02/23 16:32) Hives Sulfa (Sulfonamide Antibiotics) [Sulfa(Sulfonamide Antibiotics)] Adverse Reaction (Mild, Verified 02/02/23 16:32) Itching Home Medications: Hydrocodone Bit/Acetaminophen [[place] 5/325Mg] 5 mg PO .PRN 02/15/15 [History] Metformin HCl 500 mg [Glucophage 500 MG] 500 mg PO TID 02/15/15 [History] Pravastatin Sodium 20 mg PO DAILY 02/15/15 [History] Verapamil HCl 40 mg PO DAILY 02/15/15 [History] Lisinopril/Hydrochlorothiazide [Lisinopril-Hctz 10-12.5 mg Tab] 10 - 12.05 mg PO DAILY 02/02/23 [History] Hx Tetanus, Diphtheria Vaccination/Date Given: Yes Hx Influenza Vaccination/Date Given: Yes (2013) Hx Pneumococcal Vaccination/Date Given: (unknown) Travel Risk - International Travel Have you traveled outside of the country in past 3 weeks: No - Coronavirus Screening Are you exhibiting any of the following symptoms?: No Close contact with a COVID-19 positive Pt in past 14-21 Days: No - Vaccine Status Have you recieved a Covid-19 vaccination: No Station Baggage Agent: Moderna - Vaccination Dates Date of 2cond Vaccination (if applicable): 10/08/2020 - Review of Systems Constitutional: No Symptoms Eyes: No Symptoms Ears, Nose, & Throat: No Symptoms Respiratory: No Symptoms Cardiac: No Symptoms Abdominal/Gastrointestinal: No Symptoms Genitourinary Symptoms: No Symptoms Musculoskeletal: No Symptoms Skin: No Symptoms, Rash Neurological: No Symptoms Psychological: No Symptoms Endocrine: No Symptoms Hematologic/Lymphatic: No Symptoms Immunological/Allergic: No Symptoms - Past Medical History Pertinent Past Medical History: Yes Neurological History: No Pertinent History ENT History: No Pertinent History Cardiac History: High Cholesterol, Hypertension Respiratory History: No Pertinent History Endocrine Medical History: Diabetes Type II Musculoskeletal History: No Pertinent History GI Medical History: No Pertinent History History: No Pertinent History Psycho-Social History: Depression Female Reproductive Disorders: Breast Cancer Other Medical History: PMHX: MALIGNANT MELANOMA 1991 ANTERIOR CHEST TREATED WITH EXCISION AND RADIATION. BREAST CA 2010 TREATED WITH LUMPECTOMY, RADIATION AND CHEMO. STATES CARRIES "THE GENE" AND HAS BEEN RECOMMENDED TO HAVE BILATERAL MASTECTOMY BUT HAS DECLINED. RIGHT CARPAL TUNNEL (NO SURGERY). FX LEFT FOOT, CHOLECYSTECTOMY, HYSTERECTOMY - Past Surgical History Past Surgical History: Yes Neuro Surgical History: No Pertinent History Cardiac: No Pertinent History Respiratory: No Pertinent History Gastrointestinal: No Pertinent History Genitourinary: No Pertinent History Musculoskeletal: No Pertinent History Female Surgical History: Hysterectomy, Lumpectomy Other Surgical History: LUMPECTOMY LEFT BREAST - Social History Smoking Status: Never smoker Exposure to second hand smoke: No Drug Use: none Patient Lives Alone: No - Nursing Vital Signs Nursing Vital Signs: Initial Vital Signs Temperature 98.7 F 02/02/23 16:16 Pulse Rate 79 02/02/23 16:16 Respiratory Rate 16 02/02/23 16:16 Blood Pressure 165/105 02/02/23 16:16 O2 Sat by Pulse Oximetry 98 02/02/23 16:16 Pain Scale Pain Intensity 0 Hypertensive - Physical Exam General Appearance: no apparent distress Eye Exam: PERRL/EOMI, eyes nml inspection Ears, Nose, Throat Exam: normal ENT inspection, TMs normal, pharynx normal, moist mucous membranes Neck Exam: normal inspection, non-tender, supple, full range of motion, No meningismus, No mass, No Brudzinski, No Kernig's Respiratory Exam: normal breath sounds, lungs clear, airway intact, No respiratory distress Cardiovascular Exam: regular rate/rhythm, normal heart sounds, normal peripheral pulses, capillary refill <2 sec, No murmur Gastrointestinal/Abdomen Exam: soft, normal bowel sounds, No tenderness Back Exam: normal inspection, normal range of motion, No CVA tenderness Extremity Exam: other (Raised erythematous area R superior medial thigh/2 small ecchymotic areas on each side of the area/Most likely local reaction to insect bites) Neurologic Exam: alert, oriented x 3, cooperative, valve mechanic II-XII nml as tested, normal mood/affect, nml cerebellar function, nml station & gait, sensation nml Skin Exam: rash Lymphatic Exam: No adenopathy SpO2 Interpretation: normal SpO2: 98 O2 Delivery: Room Air - Course Nursing assessment & vital signs reviewed: Yes - Progress Counseled pt/family regarding: diagnosis, need for follow-up - Departure Departure Disposition: Home Clinical Impression: Local reaction to insect sting Condition: Stable Critical Care Time(excluding separately billable procedures): Critical 30-74 mins Referrals: JAY OBRIEN MD [Primary Care Provider] - Follow up/PCP as directed Instructions: Insect Bites and Stings (DC) Additional Instructions: Benadryl 25mg every 6 hours as needed 1% over the counter hydrocortisone cream to area 2-3 times a day Start Doxycycline twice a day if area get more red or if you develop a temperature greater than 100.5 Prescriptions: Doxycycline Monohydrate 100 mg PO BID 7 Days #14 cap
[2023-02-02] MEDS ORDERED: DECADRON 10MG INJ. IM ONE (17:01)
[2023-02-02] MEDS ORDERED: DECADRON 10MG INJ. ONE (17:25)
[2023-02-02 17:36] VITALS: PULSE 76; RESP 18; O2SAT 97
== END 2023-02-02 17:34 | disposition home or self-care (01) ==
LOC: ED 16:16
DX: S70.361A Insect bite (nonvenomous), right thigh, initial encounter (principal); E78.5 Hyperlipidemia, unspecified; I10 Essential (primary) hypertension; E11.9 Type 2 diabetes mellitus without complications; Z79.84 Long term (current) use of oral hypoglycemic drugs; Z79.899 Other long term (current) drug therapy
CPT/HCPCS: 96372; 99282; J1100

== ENCOUNTER 2024-05-26 20:46 | Emergency (ER) | payer MEDICARE, OTHER ==
[2024-05-26 20:58] VITALS: TEMP 97.8
[2024-05-26] MEDS ORDERED: DELTASONE 20 MG ONE (21:04)
[2024-05-26] MEDS: DELTASONE 20 MG PO ONE (21:07)
[2024-05-26 21:35] LABS: Group A Strep NOT DETECTED (NEGATIVE)
[2024-05-26 21:46] LABS: INFLUENZA A NEGATIVE (NEGATIVE); INFLUENZA B NEGATIVE (NEGATIVE); RESPIRATORY SYNCTIAL VIRUS NEGATIVE (NEGATIVE); SARS-CoV-2 Xpert Express NEGATIVE (NEGATIVE)
--- NOTE | 2024-05-26 21:53 | ERPHSYRPT ---
- History of Present Illness Time Seen by Provider: 05/26/24 21:00 Source: patient Exam Limitations: no limitations Patient Subjective Stated Complaint: Pt states "For four days I have had a sore throat and sinus drainage. My voice is raspy and I do not know why." Triage Nursing Assessment: Pt presented alert and oriented X 3, skin pwd. Pt ambulates with an upright steady gait, able to speak in full sentences. Pt voice is raspy. Physician History: Patient is a 63-year-old female presents to our ED for evaluation of sore throat and sinus drainage. Patient reports her symptoms have been ongoing for approximately 4 days. Patient voices hoarse. No airway compromise. No shortness of breath. Patient also has a dry intermittent cough. No fever. Symptoms are mild to moderate in intensity. No specific worsening improving factors. Patient otherwise feels well. She voices no other complaints or concerns at this time. Portions of this note were created with voice recognition technology. There may be grammatical, spelling, punctuation or sound alike errors Timing/Duration: today Severity: moderate Modifying Factors: Improves With: nothing Associated Symptoms: denies symptoms Allergies/Adverse Reactions: amoxicillin Allergy (Mild, Verified 02/02/23 16:32) Hives iodine [Iodine] Allergy (Mild, Verified 02/02/23 16:32) Hives Sulfa (Sulfonamide Antibiotics) [Sulfa(Sulfonamide Antibiotics)] Adverse Reaction (Mild, Verified 02/02/23 16:32) Itching Home Medications: Hydrocodone Bit/Acetaminophen [[place] 5/325Mg] 5 mg PO .PRN 02/15/15 [History] Metformin HCl 500 mg [Glucophage 500 MG] 500 mg PO TID 02/15/15 [History] Pravastatin Sodium 20 mg PO DAILY 02/15/15 [History] Verapamil HCl 40 mg PO DAILY 02/15/15 [History] Lisinopril/Hydrochlorothiazide [Lisinopril-Hctz 10-12.5 mg Tab] 10 - 12.05 mg PO DAILY 02/02/23 [History] Hx Tetanus, Diphtheria Vaccination/Date Given: Yes Hx Influenza Vaccination/Date Given: Yes (2013) Hx Pneumococcal Vaccination/Date Given: No Immunizations Up to Date: No Travel Risk - International Travel Have you traveled outside of the country in past 3 weeks: No - Emerging Infectious Disease Are you exhibiting symptoms associated with any current EIDs: No - Review of Systems Constitutional: No Symptoms, No Fever, No Chills Eyes: No Symptoms Ears, Nose, & Throat: No Symptoms Respiratory: No Symptoms, No Cough, No Dyspnea Cardiac: No Symptoms, No Chest Pain, No Edema, No Syncope Abdominal/Gastrointestinal: No Symptoms, No Abdominal Pain, No Nausea, No Vomiting, No Diarrhea Genitourinary Symptoms: No Symptoms, No Dysuria Musculoskeletal: No Symptoms, No Back Pain, No Neck Pain Skin: No Symptoms, No Rash Neurological: No Symptoms, No Dizziness, No Focal Weakness, No Sensory Changes Psychological: No Symptoms Endocrine: No Symptoms Hematologic/Lymphatic: No Symptoms Immunological/Allergic: No Symptoms All Other Systems: Reviewed and Negative - Past Medical History Pertinent Past Medical History: Yes Neurological History: No Pertinent History ENT History: No Pertinent History Cardiac History: High Cholesterol, Hypertension Respiratory History: No Pertinent History Endocrine Medical History: Diabetes Type II Musculoskeletal History: No Pertinent History GI Medical History: No Pertinent History History: No Pertinent History Psycho-Social History: Depression Female Reproductive Disorders: Breast Cancer Other Medical History: PMHX: MALIGNANT MELANOMA 1991 ANTERIOR CHEST TREATED WITH EXCISION AND RADIATION. BREAST CA 2010 TREATED WITH LUMPECTOMY, RADIATION AND CHEMO. STATES CARRIES "THE GENE" AND HAS BEEN RECOMMENDED TO HAVE BILATERAL MASTECTOMY BUT HAS DECLINED. RIGHT CARPAL TUNNEL (NO SURGERY). FX LEFT FOOT, CHOLECYSTECTOMY, HYSTERECTOMY - Past Surgical History Past Surgical History: Yes Neuro Surgical History: No Pertinent History Cardiac: No Pertinent History Respiratory: No Pertinent History Gastrointestinal: No Pertinent History Genitourinary: No Pertinent History Musculoskeletal: No Pertinent History Female Surgical History: Hysterectomy, Lumpectomy Other Surgical History: LUMPECTOMY LEFT BREAST - Social History Smoking Status: Never smoker Exposure to second hand smoke: No Drug Use: none Patient Lives Alone: No - Social Determinants of Health Will the patient participate in the screening: Declined to provide - Nursing Vital Signs Nursing Vital Signs: Initial Vital Signs Temperature 97.8 F 05/26/24 20:52 Pulse Rate 87 05/26/24 20:52 Respiratory Rate 18 05/26/24 20:52 Blood Pressure 164/86 05/26/24 20:52 O2 Sat by Pulse Oximetry 100 05/26/24 20:52 Pain Scale Pain Intensity 0 - Physical Exam General Appearance: no apparent distress, alert, other (Hoarse voice. Patent airway. Clear lung gutiérrez) Eye Exam: PERRL/EOMI, eyes nml inspection Ears, Nose, Throat Exam: normal ENT inspection, pharynx normal, moist mucous membranes, other (Nasal congestion, rhinorrhea) Neck Exam: normal inspection, non-tender, supple, full range of motion Respiratory Exam: normal breath sounds, lungs clear, airway intact, No respiratory distress Cardiovascular Exam: regular rate/rhythm, normal heart sounds, normal peripheral pulses Gastrointestinal/Abdomen Exam: soft, normal bowel sounds, No tenderness, No mass Back Exam: normal inspection, normal range of motion, No CVA tenderness, No vertebral tenderness Extremity Exam: normal inspection, normal range of motion, pelvis stable Neurologic Exam: alert, oriented x 3, cooperative, normal mood/affect, sensation nml, No motor deficits Skin Exam: normal color, warm, dry, No rash Lymphatic Exam: No adenopathy SpO2 Interpretation: normal SpO2: 100 O2 Delivery: Room Air - Course Nursing assessment & vital signs reviewed: Yes Ordered Tests: Medication Summary Discontinued Medications Generic Name Dose Route Start Last Admin Trade Name Wendy PRN Reason Stop Dose Admin Prednisone 60 mg 05/26/24 20:58 05/26/24 21:07 Prednisone 20 Mg Tablet PO 05/26/24 20:59 60 mg STAT ONE Administration Prednisone Confirm 05/26/24 21:04 Prednisone 20 Mg Tablet Administered 05/26/24 21:05 Dose 60 mg .ROUTE .STK-MED ONE Lab/Rad Data: Laboratory Results 05/26/24 Range/Units 21:00 Influenza Type A Ag NEGATIVE (NEGATIVE) Influenza Type B Ag NEGATIVE (NEGATIVE) RSV (PCR) NEGATIVE (NEGATIVE) SARS-CoV-2 (PCR) NEGATIVE (NEGATIVE) Group A Strep Antibody NOT DETECTED (NEGATIVE) - Progress Progress: improved Progress Note: 63-year-old female presents to our ED for evaluation of cough nasal congestion sore throat hoarse voice. RSV influenza COVID negative. Rapid strep negative as well. Patient received a dose of prednisone in our ED. A prescription for the same forwarded to patient's pharmacy. Patient agrees to follow-up with her primary care doctor within 48 hours for reevaluation. Patient states she is ready for discharge she voices no other complaints or concerns at this time. Portions of this note were created with voice recognition technology. There may be grammatical, spelling, punctuation or sound alike errors Complexity of problem addressed is moderate acute complicated no critical care time. Complex of data reviewed and analyzed is moderate. Test ordered chest reviewed results analyzed and correlated clinically with history and physical exam. Risk of complication and or risk of morbidity/mortality of patient management is moderate. A prescription for prednisone forwarded to patient's pharmacy. Vital stable. Time spent to discharge patient is approximately 10 minutes. Plan of care established for shared decision making. No social determinants of health present to impede follow-up. Portions of this note were created with voice recognition technology. There may be grammatical, spelling, punctuation or sound alike errors 05/26/24 22:40 Counseled pt/family regarding: diagnosis, need for follow-up - Departure Departure Disposition: Home Clinical Impression: URI (upper respiratory infection), Cough, Laryngitis, Sore throat Condition: Stable Critical Care Time: No Referrals: JAY OBRIEN MD [Primary Care Provider] - Follow up/PCP as directed Additional Instructions: Discharge/Care Plan MADDY ARGUETA was seen on 05/26/24 in the Emergency Room. The patient was counseled regarding Diagnosis,Lab results, Imaging studies, need for follow up and when to return to the Emergency Room. Prescriptions given: Discharge Note I have spoken with the patient and/or caregivers. I have explained the patient's condition, diagnosis and treatment plan based on the information available to me at this time. I have answered the patient's and/or caregiver's questions and addressed any concerns. The patient and/or caregivers have as good understanding of the patient's diagnosis, condition and treatment plan as can be expected at this point. The vital signs have been stable. The patient's condition is stable and appropriate for discharge from the emergency department. The patient will pursue further outpatient evaluation with the primary care physician or other designated or consulting physician as outlined in the discharge instructions. The patient and/or caregivers are agreeable to this plan of care and follow-up instructions have been explained in detail. The patient and/or caregivers have received these instruction. The patient/and or caregivers are aware that any significant change in condition or worsening of symptoms should prompt an immediate return to this or the closest emergency department or call 911. Prescriptions: Prednisone 10 mg [Deltasone 10 mg] 40 mg PO DAILY 3 Days #12 tablet
[2024-05-26 22:30] VITALS: BP 156/62
[2024-05-26 22:33] VITALS: O2SAT 100
[2024-05-26 22:39] VITALS: PULSE 68; RESP 20
== END 2024-05-26 22:46 | disposition home or self-care (01) ==
LOC: ED 20:46
DX: J06.9 Acute upper respiratory infection, unspecified (principal); J02.9 Acute pharyngitis, unspecified; J04.0 Acute laryngitis
CPT/HCPCS: 0241U; 87651; 99283; A9270-GY